=== PATIENT | male | born 1930 | race Caucasian/White ===

== ENCOUNTER 2016-12-07 21:11 | Inpatient (IN) | payer OTHER, MEDICARE ==
[~2016-12-07] VITALS: Ht 182.9 cm; Wt 92.9 kg
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
--- NOTE | ~2016-12-07 | EKG ---
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
[~2016-12-07 21:11] MED LIST: ALDACTONE25 MG PO; ASPIRIN EC325 M1 PO; BENAZEPRIL HCL10 MG PO; COREG PO; COREG25 MG PO; COUMADIN 2.5MG2.5 M1 PO; COUMADIN 5 MG TA5 M1 PO; FLAGYL500 MG PO; HYDROCODONE-AP1 EAC6 PO; IMDUR 60 MG TAB60 M1 PO; IMDUR120 MG PO; K-DUR10 ME1 PO; LANOXIN 0.120.125 M1 PO; LASIX 40 MG TAB40 M1 PO; LIPITOR10 MG PO; LOPID600 MG PO; LOTENSIN PO; LOTENSIN20 MG PO; OXYGEN MISCELL; PACERONE 200 M200 M1 PO; PROAIR HFA8.5 GM INH
[2016-12-07 21:12] VITALS: BP 174/73
[2016-12-07 21:45] LABS: ABG SAMPLE TYPE ARTERIAL; BE(vivo) 1.7 mmol/L (-2 to +3); HCO3 25.8 mmol/L (22.0-26.0); LACTATE 2.04 mmol/L (0.5-2.0); O2(CT) 18.3 mL/dL (15.0-23.0); PCO2 38.8 mmHg (35.0-45.0); PO2 48.1 mmHg (80.0-100.0); sO2 85.5 % (92.0-98.0)
[2016-12-07 21:46] LABS: STICK SITE R.BRACHIAL
[2016-12-07 21:53] LABS: ANION GAP 7 mmol/L (7-16); BUN 22 mg/dL (7-18); CHLORIDE 107 mmol/L (98-107); CO2 29 mmol/L (21-32); CREATININE 1.1 mg/dL (0.6-1.3); GLUCOSE 118 mg/dL (70-99); POTASSIUM 3.7 mmol/L (3.5-5.1); SODIUM 143 mmol/L (136-145)
[2016-12-07 21:54] LABS: HEMATOCRIT 46.6 % (42.0-52.0); HEMOGLOBIN 15.3 gm/dL (14.0-18.0); MANUAL DIFF YES; MCHC 32.8 % (28.0-37.0); MCV 100.8 fL (80.0-100.0); PLATELET COUNT 155 thou/uL (150-400); RBC 4.63 mil/uL (4.50-6.00); RDW 14.4 % (10.5-14.5); WBC 11.7 thou/uL (4.0-11.0)
[2016-12-07 21:59] LABS: INR 2.8; PROTIME 28.6 Seconds (9.3-11.4)
[2016-12-07] MEDS ORDERED: TRAMADOL 50 MG50 MG PO (22:04)
[2016-12-07 22:15] LABS: ALBUMIN 3.2 g/dL (3.4-5.0); ALKALINE PHOSPHATASE 88 U/L (46-116); MAGNESIUM 1.9 mg/dL (1.8-2.4); SGOT 15 U/L (15-37); SGPT 15 U/L (30-65); TOTAL BILIRUBIN 0.5 mg/dL (<0.1-1.0); TOTAL PROTEIN 7.2 g/dL (6.4-8.2); TROPONIN-I < 0.04 ng/mL (<0.04-0.07)
[2016-12-07 22:22] LABS: ABSOLUTE NEUTROPHILS 10.1 thou/uL (1.4-8.2); TOTAL CELL COUNT 100
[2016-12-07 22:25] LABS: URINE BILIRUBIN NEGATIVE (Negative); URINE BLOOD NEGATIVE (Negative); URINE COLOR YELLOW; URINE GLUCOSE-RANDOM* NEGATIVE (Negative); URINE KETONES NEGATIVE (Negative); URINE LEUKOCYTES-REFLEX NEGATIVE (Negative); URINE PROTEIN (DIPSTICK) 1+ (Negative); URINE SPECIFIC GRAVITY 1.015 (1.003-1.035); URINE UROBILINOGEN 0.2 E.U./dl (0.2-1.0)
[2016-12-07 22:32] LABS: CASTS None Seen /LPF (None Seen); CRYSTALS None Seen /LPF (None Seen); SQUAMOUS None Seen /LPF (0-3); URINE RBC None Seen /HPF (0-2); URINE WBC-REFLEX None Seen /HPF (0-5)
[2016-12-08 00:24] VITALS: BP 129/53
[2016-12-08 07:45] VITALS: BP 127/68
[2016-12-08 11:42] VITALS: BP 119/53
[2016-12-08 15:16] VITALS: BP 99/47
[2016-12-08 15:49] VITALS: BP 104/49
[2016-12-08 20:35] VITALS: BP 105/53
[2016-12-09 00:37] VITALS: BP 114/57
[2016-12-09 04:20] VITALS: BP 120/69
[2016-12-09 05:28] LABS: HEMATOCRIT 41.4 % (42.0-52.0); HEMOGLOBIN 13.5 gm/dL (14.0-18.0); MCH 32.6 pg (26.0-34.0); MCHC 32.6 % (28.0-37.0); MCV 100.1 fL (80.0-100.0); PLATELET COUNT 131 thou/uL (150-400); RBC 4.14 mil/uL (4.50-6.00); RDW 14.6 % (10.5-14.5); WBC 12.2 thou/uL (4.0-11.0)
[2016-12-09 05:34] LABS: MANUAL DIFF YES
[2016-12-09 05:36] LABS: INR 2.8; PROTIME 29.2 Seconds (9.3-11.4)
[2016-12-09 05:37] LABS: CALCIUM 8.9 mg/dL (8.5-10.1); CREATININE 1.3 mg/dL (0.6-1.3); POTASSIUM 4.5 mmol/L (3.5-5.1)
[2016-12-09 06:33] LABS: ABSOLUTE NEUTROPHILS 11.2 thou/uL (1.4-8.2); ANISOCYTOSIS SLIGHT; TOTAL CELL COUNT 100
[2016-12-09 06:35] LABS: MACROCYTES 2+
[2016-12-09 08:32] VITALS: BP 125/65
[2016-12-09] MEDS ORDERED: PREDNISONE 20 M20 MG PO (09:11)
[2016-12-09] MEDS ORDERED: LEVAQUIN 500 M500 M4 PO (09:12)
[2016-12-09 09:58] VITALS: BP 125/65
[2016-12-09 10:55] VITALS: BP 125/65
[2017-01-31] MEDS ORDERED: VENTOLIN HFA 1818 GM INH (13:45)
[2017-01-31] MEDS ORDERED: APAP500 PO (13:50)
== END 2016-12-09 10:54 | disposition home or self-care (01) | DRG 177 ==
LOC: ER 21:11 → 3N 22:19 → EROBS 22:19 → 3N 12-08 00:24
PROVIDERS: Emergency Medicine; Family Medicine; Nurse Practitioner Acute Care
DX: J69.0 Pneumonitis due to inhalation of food and vomit (principal); J96.21 Acute and chronic respiratory failure with hypoxia; J44.1 Chronic obstructive pulmonary disease with (acute) exacerbation; J44.0 Chronic obstructive pulmonary disease with (acute) lower respiratory infection; Z96.89 Presence of other specified functional implants; E78.5 Hyperlipidemia, unspecified; I10 Essential (primary) hypertension; I25.10 Atherosclerotic heart disease of native coronary artery without angina pectoris; F17.210 Nicotine dependence, cigarettes, uncomplicated; I73.9 Peripheral vascular disease, unspecified; Z98.890 Other specified postprocedural states; I48.2 Chronic atrial fibrillation; Z66 Do not resuscitate; Z79.82 Long term (current) use of aspirin; Z79.899 Other long term (current) drug therapy; Z28.21 Immunization not carried out because of patient refusal; Z89.512 Acquired absence of left leg below knee; Z89.511 Acquired absence of right leg below knee; Z98.42 Cataract extraction status, left eye; Z98.41 Cataract extraction status, right eye; Z95.820 Peripheral vascular angioplasty status with implants and grafts; Z88.0 Allergy status to penicillin; Z79.01 Long term (current) use of anticoagulants
CPT/HCPCS: 10096

== ENCOUNTER 2016-12-13 02:57 | Inpatient (IN) | payer OTHER, MEDICARE ==
[2016-12-13] VITALS (48 sets, daily range): BP systolic 94–164; BP diastolic 47–87
[~2016-12-13] VITALS: Ht 182.9 cm; Wt 104.3 kg
--- NOTE | ~2016-12-13 | HC ---
[facility] [place] [address] CONSULTATION Name: MALOU DUNNMagali Damon Room #: 246-P [facility] IN ..#: [id number] Admission: 12/13/16 Attend Phys: Louis Ortiz DO Discharge: Date of : 32 Report #: [id number] THIS REPORT FOR: //name// CC: Kirby Shepard PRIMARY CARE PHYSICIAN: Raza oY M.D. REFERRING PHYSICIAN: Dr. Hunt. REASON FOR REFERRAL: Acute respiratory failure. HISTORY OF PRESENT ILLNESS: The patient is an 86-year-old white male who was brought to the Emergency Room with altered mental status and respiratory distress. In the ER, the patient was found to be in severe distress where he had to be intubated. A pulmonary consultation was requested. The patient has multiple hospitalizations over the past year starting in December. His last hospitalization was in November of 2016 for acute exacerbation of COPD. The patient continues to smoke. He was then subsequently dismissed to home. The patient lives with a roommate. Around 1:30 this morning, the patient's roommate heard a noise. She believes the patient may have fallen out of the bed. The patient was found on the floor unconsciousness. He was brought to the Emergency Room. According to the patient's friend, the patient uses BiPAP. He continues to smoke. In route to the hospital, Narcan was given. The patient became very agitated, awake. Note that patient is on hydrocodone for chronic back pain. He has known COPD, severity undefined. He has chronic hypoxic respiratory failure requiring chronic O2. Again, he continues to smoke. Currently, he is intubated. Hemodynamically stable. Gastric change is adequate. PAST MEDICAL HISTORY: Remarkable for coronary artery disease, status post biventricular pacemaker and defibrillator implantation, peripheral artery disease undergoing right fem-pop bypass, left below the knee amputation for severe peripheral vascular disease, COPD, chronic hypoxic respiratory failure on O2, atrial fibrillation, hyperlipidemia, hypertension, tobacco abuse. [address] [address] CONSULTATION Name: CARLOS DUNN Room #: 246-P [facility] IN M.R.#: [id number] Admission: 12/13/16 Attend Phys: Louis Ortiz DO Discharge: Date of : 32 Report #: [id number] ALLERGIES: PENICILLIN, reactions not specified. MEDICATIONS: On admission include aspirin, hydrocodone/acetaminophen 5/325 mg 1-2 tablets every 4 hours p.r.n. pain, Lasix, Lipitor, K-Dur, Ultram, Imdur, Lotensin, Coreg, Coumadin 2.5 mg once a day, Cogentin 2.5 mg as directed, ProAir, Coumadin 5 mg as directed. FAMILY HISTORY: Unremarkable. SOCIAL HISTORY: He continues to smoke about a pack a day for all his life. No alcohol use. He lives with a friend. MEDICAL DIRECTIVE: According to the RN, the patient had a medical directive stating that he is a DNR in the past. This will need to be readdressed on this admission. REVIEW OF SYSTEMS: Deferred as the patient is intubated. PHYSICAL EXAMINATION: GENERAL: He is sedated on Diprivan. VITAL SIGNS: Temperature is 97 degrees Fahrenheit, pulse is 60, respiratory rate is 24, blood pressure is 115/60 mmHg, saturation 97%. HEENT: Normocephalic, atraumatic. NECK: Supple without any lymphadenopathy or thyromegaly. CHEST: Breath sounds are moderate with mild expiratory wheezes, mild coarse breath sounds bilaterally. Few scattered crackles in the bases. CARDIOVASCULAR: Heart sounds are distant, that is irregularly irregular. No murmurs or gallop. Pulses are 2+/4+ bilaterally. ABDOMEN: Soft, nontender, no organomegaly or masses felt. EXTREMITIES: There is no edema, cyanosis or clubbing. Extremities remarkable for left BKA, otherwise no cyanosis or clubbing. DIAGNOSTIC DATA: Portable chest x-ray revealed a mild bilateral interstitial infiltrates, chronic right pleural disease, mild, cardiomegaly; ET tube is approximately 2.5 cm above the perico. CT head, CT spine, CT of the fascial mandible grossly unremarkable. CT of head does reveal extensive atrophy along with chronic microvascular disease. CT of cervical spine revealed extensive cervical spine osteoarthritis. CT of the facial bones and mandible reveal a subtle nasal fracture with minimal displacement. Arterial blood gas on admission revealed pH 7.44, pCO2 of 38, pO2 48 on 6 liters of O2. Following intubation, arterial blood gas revealed pH 7.28, pCO2 of 61, pO2 of 296 on FiO2 100%. Troponin is mildly elevated. WBC 11,700 with 10% bandemia. Platelets are normal. Liver function test is mildly abnormal. Albumin of 3.2. IMPRESSION: [facility] [address] [place] [address] CONSULTATION Name: CARLOS DUNN Room #: 246-P [facility] IN M.R.#: [id number] Admission: 12/13/16 Attend Phys: Louis Ortiz DO Discharge: Date of : 32 Report #: [id number] 1. Acute encephalopathy, unresponsive state, likely related to chronic narcotics. Note that patient did respond to Narcan. 2. Acute hypoxic respiratory failure. Initial arterial blood gas likely suggests venous. Followup subsequent blood gas shows what appears to be chronic hypercapnia. The patient likely has acute on chronic hypercapnic hypoxic respiratory failure due to exacerbation of COPD, with bandemia and radiographic findings, recurrent pneumonia including aspiration, gram negative is considered. 3. Bilateral infiltrates, mild with chronic pleural disease. With current presentation, cannot rule out recurrent infection as mentioned above. 4. Acute kidney injury, now with a creatinine of 1.4. 5. Coronary artery disease with apparent severe ischemic cardiomyopathy, his last cardiac evaluation showed an ejection fraction of approximately 20%. 6. Peripheral vascular disease, status post left BKA. Status post right fem-pop bypass surgery in 1999. 7. Chronic atrial fibrillation on chronic anticoagulation. The patient is on Coumadin. 8. Hypertension, hyperlipidemia. 9. Tobacco abuse. The patient continued to smoke to this day. 10. Apparent back pain and had been on narcotics. This will need to be addressed given his presentation. RECOMMENDATION: We will continue mechanical ventilation, corticosteroids, bronchodilators along with broad spectrum antibiotics. Wean O2 for saturation 90%. DVT and GI prophylaxis will be addressed, although patient is already on anticoagulation. Smoke cessation will be recommended though this appears to be a big problem in this patient with chronic hypoxic respiratory failure along with presumed severe COPD. The patient is felt to have asthma according to history. Thank you for this consultation. <ELECTRONICALLY SIGNED> By: Jayden Shepard MD 12/13/16 1647 1133 1307 Jayden Shepard MD /dimas
--- NOTE | ~2016-12-13 | EKG ---
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1930 Requested By: Ehsan Mahan Order Number: [id number] MD: Juan Jose Mcghee Measurements Intervals [place] Rate: 63 P: [place]: QRS: -71 QRSD: 198 T: 113 QT: 467 QTc: 479 Interpretive Statements V-paced complexes No further analysis attempted due to paced rhythm Compared to ECG 12/07/2016 21:15:04 No significant changes Electronically Signed On 12-13-2016 7:45:01 CARBON PASTE MIXER OPERATOR by Juan Jose Mcghee [email or web address] <ELECTRONICALLY SIGNED> By: Juan Jose Mcghee MD, [facility] 12/13/16 0745 0340 Juan Jose Mcghee MD, FAC /EPI
--- NOTE | ~2016-12-13 | 2DMMODE ---
[facility] [place] [address] 2 D/M-MODE ECHOCARDIOGRAM Name: CARLOS DUNN Room #: 435-P [facility] IN [facility]#: [id number] Admission: 12/13/16 Attend Phys: Louis Ortiz, Discharge: Date of : 32 Date of Service: 12/16/16 1206 Report #: [id number] THIS REPORT FOR: //name// Transthoracic Echocardiography Ordering physician: Beatriz Pierre Referring physician: MD Sanaz Seals, Beatriz Kramer Terminal Computer Operator: Indications/History: Short of breath. Cardiomyopathy. Hx: CAD, Pacermaker/defibrillator, COPD, Afib, HTN, HLP BP: 156 / HR: 72bpm Height: 72in Weight: 229.5lb 81 Study data: M-mode, complete 2D, complete spectral Doppler, and color Doppler. Location: Bedside. Routine. Image quality was adequate. 2D measurements Normal Normal LVID ED 60.7mm 36-57 IVS ED 14.1mm 6-11 LVID ES 51.9mm 23-40 LVPW ED 11.9mm 6-11 LA volume 52ml/m2 16-28 AoRoot diam 36mm 21-37 index ED LVOT diameter 23mm 18-23 Findings: Left ventricle: The cavity size was dilated. Wall thickness was increased in a pattern of mild LVH. Systolic function was moderately reduced. The estimated ejection fraction was in the range of 35%. Regional wall motion abnormalities: Severe hypokinesis of the inferolateral myocardium. Right ventricle: The cavity size was moderately dilated. Systolic function was moderately reduced. Right atrium: The atrium was moderately to severely dilated. Pacer wire or catheter noted in right atrium. Left atrium: The atrium was severely dilated. Volume index: 52ml/m2 (S). [facility] [address] [place] [address] 2 D/M-MODE ECHOCARDIOGRAM Name: CARLOS DUNN Room #: 435-P [facility] IN [place]#: [id number] Admission: 12/13/16 Attend Phys: Louis Ortiz, Discharge: Date of : 32 Date of Service: 12/16/16 1206 Report #: [id number] Aortic valve: Mildly sclerotic leaflets. Doppler: There was no stenosis. No regurgitation. Peak velocity: 128.1cm/s (S). Mitral valve: Mildly calcified annulus. Doppler: There was no evidence for stenosis. Mild regurgitation. Peak E-wave velocity: 107.2cm/s. Peak gradient: 4.6mm Hg (D). Tricuspid valve: Structurally normal valve. Doppler: There was no evidence for stenosis. Mild-moderate regurgitation. Regurgitant peak velocity: 333.8cm/s. Peak RV-RA gradient: 45mm Hg (S). Pulmonic valve: Structurally normal valve. Doppler: There was no evidence for stenosis. Trivial regurgitation. Pericardium: There was no pericardial effusion. Aorta: Aortic root: The aortic root was normal in size. Pulmonary artery: Systolic pressure was estimated to be 55mm Hg. Diastolic function: The study is not technically sufficient to allow evaluation of LV diastolic function. Systemic veins: Inferior vena cava: The vessel was dilated; the respirophasic diameter changes were blunted (< 50%). Line: Pacemaker leads noted. Conclusions 1. Left ventricle: Systolic function was moderately reduced. The estimated ejection fraction was in the range of 35%. Severe hypokinesis of the inferolateral myocardium. 2. Right atrium: The atrium was moderately to severely dilated. 3. Left atrium: The atrium was severely dilated. 4. Aortic valve: Mildly sclerotic leaflets. There was no stenosis. No regurgitation. 5. Mitral valve: Mildly calcified annulus. Mild regurgitation. 6. Pericardium, extracardiac: There was no pericardial effusion. 7. Pulmonary arteries: Systolic pressure was estimated to be [facility] [address] [place] [address] 2 D/M-MODE ECHOCARDIOGRAM Name: CARLOS DUNN Room #: 435-P [facility] IN [facility]#: [id number] Admission: 12/13/16 Attend Phys: Louis Ortiz, Discharge: Date of : 32 Date of Service: 12/16/16 1206 Report #: [id number] 55mm Hg. 8. Line: Pacemaker leads noted. <ELECTRONICALLY SIGNED> By: Juan Jose Mcghee MD, [facility] 12/16/16 1426 1206 25 Juan Jose Mcghee MD, [facility] /roxy
[~2016-12-13 02:57] MED LIST changes: +LEVAQUIN 500 M500 M4 PO; +PREDNISONE 20 M20 MG PO; +TRAMADOL 50 MG50 MG PO
[2016-12-13 03:17] LABS: HEMATOCRIT 47.5 % (42.0-52.0); HEMOGLOBIN 15.4 gm/dL (14.0-18.0); MCH 32.8 pg (26.0-34.0); MCHC 32.5 % (28.0-37.0); PLATELET COUNT 168 thou/uL (150-400); RDW 14.2 % (10.5-14.5); WBC 14.2 thou/uL (4.0-11.0)
[2016-12-13 03:25] LABS: URINE BILIRUBIN NEGATIVE (Negative); URINE BLOOD NEGATIVE (Negative); URINE COLOR YELLOW; URINE GLUCOSE-RANDOM* NEGATIVE (Negative); URINE KETONES NEGATIVE (Negative); URINE LEUKOCYTES-REFLEX NEGATIVE (Negative); URINE PROTEIN (DIPSTICK) TRACE (Negative); URINE UROBILINOGEN 0.2 E.U./dl (0.2-1.0)
[2016-12-13 03:29] LABS: APTT 27.5 Seconds (24.5-32.8); CALCIUM 8.8 mg/dL (8.5-10.1); CREATININE 1.4 mg/dL (0.6-1.3); INR 2.1; MANUAL DIFF YES; POTASSIUM 5.1 mmol/L (3.5-5.1); PROTIME 21.4 Seconds (9.3-11.4)
[2016-12-13 03:33] LABS: AMP/METHAMP Negative (Negative); BARBITURATES Negative (Negative); BENZODIAZEPINES Negative (Negative); COCAINE Negative (Negative); METHADONE Negative (Negative); OPIATES POSITIVE (Negative); PCP Negative (Negative); THC Negative (Negative)
[2016-12-13 03:34] LABS: ABG SAMPLE TYPE ARTERIAL; BE(vivo) -3.6 mmol/L (-2 to +3); HCO3 23.7 mmol/L (22.0-26.0); LACTATE 4.44 mmol/L (0.5-2.0); O2(CT) 22.2 mL/dL (15.0-23.0); O2Hb 96.4 % (92.0-98.0); PCO2 51.2 mmHg (35.0-45.0); pH 7.283 (7.360-7.450); sO2 99.6 % (92.0-98.0); tCO2 25.3 mmol/L (24.0-30.0)
[2016-12-13 03:44] LABS: ALBUMIN 3.4 g/dL (3.4-5.0); CK-MB MASS 1.6 ng/mL (<0.5-3.6); MAGNESIUM 2.6 mg/dL (1.8-2.4); TOTAL BILIRUBIN 0.9 mg/dL (<0.1-1.0); TOTAL PROTEIN 7.6 g/dL (6.4-8.2); TROPONIN-I 0.07 ng/mL (<0.04-0.07)
[2016-12-13 04:01] LABS: ABSOLUTE NEUTROPHILS 12.1 thou/uL (1.4-8.2); TOTAL CELL COUNT 100
[2016-12-13 04:02] LABS: LARGE PLATELETS RARE
[2016-12-13 05:52] LABS: ABG SAMPLE TYPE ARTERIAL; BE(vivo) 1.8 mmol/L (-2 to +3); HCO3 28.6 mmol/L (22.0-26.0); LACTATE 2.02 mmol/L (0.5-2.0); O2(CT) 19.9 mL/dL (15.0-23.0); O2Hb 96.9 % (92.0-98.0); PO2 333.3 mmHg (80.0-100.0); STICK SITE R.RADIAL; TIDAL VOLUME 600 ml; pH 7.342 (7.360-7.450); sO2 99.7 % (92.0-98.0); tCO2 30.3 mmol/L (24.0-30.0)
[2016-12-14] VITALS (30 sets, daily range): BP systolic 99–161; BP diastolic 44–101
[2016-12-14 05:47] LABS: ABG SAMPLE TYPE ARTERIAL; BE(vivo) 1.9 mmol/L (-2 to +3); FIO2 50 %; HCO3 27.9 mmol/L (22.0-26.0); LACTATE 1.51 mmol/L (0.5-2.0); O2(CT) 18.9 mL/dL (15.0-23.0); O2Hb 96.8 % (92.0-98.0); PCO2 49.1 mmHg (35.0-45.0); PO2 110.8 mmHg (80.0-100.0); STICK SITE R.RADIAL; TIDAL VOLUME 600 ml; pH 7.373 (7.360-7.450); sO2 97.9 % (92.0-98.0); tCO2 29.4 mmol/L (24.0-30.0)
[2016-12-14 07:17] LABS: HEMATOCRIT 39.1 % (42.0-52.0); MCH 32.9 pg (26.0-34.0); MCHC 33.3 % (28.0-37.0); PLATELET COUNT 124 thou/uL (150-400); RBC 3.95 mil/uL (4.50-6.00); RDW 14.1 % (10.5-14.5); WBC 12.1 thou/uL (4.0-11.0)
[2016-12-14 07:22] LABS: MANUAL DIFF YES
[2016-12-14 07:53] LABS: ABSOLUTE NEUTROPHILS 11.3 thou/uL (1.4-8.2); TOTAL CELL COUNT 100
[2016-12-14 07:54] LABS: ANISOCYTOSIS 1+; HYPOCHROMASIA SLIGHT
[2016-12-14 08:06] LABS: CALCIUM 8.1 mg/dL (8.5-10.1); CREATININE 1.1 mg/dL (0.6-1.3)
[2016-12-15] VITALS (17 sets, daily range): BP systolic 108–148; BP diastolic 55–88
[2016-12-15 07:00] LABS: HEMATOCRIT 41.7 % (42.0-52.0); HEMOGLOBIN 13.5 gm/dL (14.0-18.0); MCH 32.9 pg (26.0-34.0); MCHC 32.3 % (28.0-37.0); MCV 101.7 fL (80.0-100.0); RBC 4.09 mil/uL (4.50-6.00); RDW 14.1 % (10.5-14.5); WBC 10.7 thou/uL (4.0-11.0)
[2016-12-15 07:20] LABS: ALBUMIN 2.9 g/dL (3.4-5.0); CALCIUM 8.5 mg/dL (8.5-10.1); CREATININE 0.9 mg/dL (0.6-1.3); PHOSPHORUS 2.8 mg/dL (2.5-4.9)
[2016-12-16] VITALS (10 sets, daily range): BP systolic 123–157; BP diastolic 54–94
[2016-12-16 04:20] LABS: HEMOGLOBIN 13.3 gm/dL (14.0-18.0); MCH 33.7 pg (26.0-34.0); RBC 3.94 mil/uL (4.50-6.00); RDW 13.8 % (10.5-14.5); WBC 9.4 thou/uL (4.0-11.0)
[2016-12-16 04:35] LABS: ALBUMIN 2.8 g/dL (3.4-5.0); CALCIUM 8.3 mg/dL (8.5-10.1); CREATININE 0.9 mg/dL (0.6-1.3); PHOSPHORUS 2.8 mg/dL (2.5-4.9); POTASSIUM 4.2 mmol/L (3.5-5.1)
[2016-12-17 04:23] VITALS: BP 171/79
[2016-12-17 07:40] VITALS: BP 146/59
[2016-12-17] MEDS ORDERED: LEVAQUIN 750 M750 MG PO (10:54)
[2016-12-17 11:35] VITALS: BP 155/75
[2016-12-17 11:41] VITALS: BP 155/75
[2016-12-17 12:13] VITALS: BP 155/75
[2016-12-17 12:24] VITALS: BP 155/75
[2017-01-31] MEDS ORDERED: VENTOLIN HFA 1818 GM INH (13:45)
[2017-01-31] MEDS ORDERED: APAP500 PO (13:50)
== END 2016-12-17 13:05 | disposition home health service (06) | DRG 208 ==
LOC: ER 02:57 → EROBS 05:59 → ICU 05:59 → 4S 12-16 06:25
PROVIDERS: Emergency Medicine; Family Medicine; Hospitalist; Internal Medicine Pulmonary Disease
PROC: 0BH17EZ Insertion of Endotracheal Airway into Trachea, Via Natural or Artificial Opening (ICD-10-PCS; principal; 2016-12-13)
PROC: 5A1945Z Respiratory Ventilation, 24-96 Consecutive Hours (ICD-10-PCS; principal; 2016-12-13)
DX: J96.21 Acute and chronic respiratory failure with hypoxia (principal); J18.9 Pneumonia, unspecified organism; G93.40 Encephalopathy, unspecified; J44.0 Chronic obstructive pulmonary disease with (acute) lower respiratory infection; J44.1 Chronic obstructive pulmonary disease with (acute) exacerbation; N17.9 Acute kidney failure, unspecified; J96.22 Acute and chronic respiratory failure with hypercapnia; I25.5 Ischemic cardiomyopathy; I48.2 Chronic atrial fibrillation; M54.9 Dorsalgia, unspecified; I25.10 Atherosclerotic heart disease of native coronary artery without angina pectoris; I73.9 Peripheral vascular disease, unspecified; I49.5 Sick sinus syndrome; N18.9 Chronic kidney disease, unspecified; I12.9 Hypertensive chronic kidney disease with stage 1 through stage 4 chronic kidney disease, or unspecified chronic kidney disease; S02.2XXA Fracture of nasal bones, initial encounter for closed fracture; W06.XXXA Fall from bed, initial encounter; E78.5 Hyperlipidemia, unspecified; J45.909 Unspecified asthma, uncomplicated; D72.829 Elevated white blood cell count, unspecified; F17.210 Nicotine dependence, cigarettes, uncomplicated; Z95.820 Peripheral vascular angioplasty status with implants and grafts; Z99.81 Dependence on supplemental oxygen; Z89.512 Acquired absence of left leg below knee; Z95.810 Presence of automatic (implantable) cardiac defibrillator; Z98.42 Cataract extraction status, left eye; Z98.41 Cataract extraction status, right eye; Z90.49 Acquired absence of other specified parts of digestive tract; Z98.890 Other specified postprocedural states; Z88.0 Allergy status to penicillin; Y93.89 Activity, other specified; Y92.89 Other specified places as the place of occurrence of the external cause
CPT/HCPCS: 10078

== ENCOUNTER → 2017-01-31 | Outpatient (CLI) | payer OTHER, MEDICARE ==
[~2017-01-31] VITALS: Ht 182.9 cm; Wt 93.0 kg
[~2017-01-31] MED LIST changes: +APAP500 PO; +LEVAQUIN 750 M750 MG PO; +VENTOLIN HFA 1818 GM INH
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
[2017-01-31 13:24] VITALS: BP 111/52
== END | disposition home or self-care (01) ==
LOC: PAIN 06:39
DX: M54.16 Radiculopathy, lumbar region (principal); I10 Essential (primary) hypertension; I73.9 Peripheral vascular disease, unspecified; M19.90 Unspecified osteoarthritis, unspecified site; I51.9 Heart disease, unspecified; J44.9 Chronic obstructive pulmonary disease, unspecified; Z95.0 Presence of cardiac pacemaker; Z95.5 Presence of coronary angioplasty implant and graft; Z98.890 Other specified postprocedural states

== ENCOUNTER → 2017-02-26 | Outpatient (CLI) | payer OTHER, MEDICARE ==
[~2017-02-26] VITALS: Ht 182.9 cm; Wt 95.7 kg
--- NOTE | ~2017-02-26 | HPC ---
[facility] [place] [address] PAIN MANAGEMENT CONSULTATION Name: CARLOS DUNN Room #: REG FABIOLA AlanaTysonKarthikeyan#: [id number] Admission: 02/26/17 Attend Phys: Wil Garcia MD Discharge: Date of : 34 Report #: [id number] THIS REPORT FOR: //name// CC: Wil Yo MD DATE OF SERVICE: 02/26/2017 FOLLOWUP COMPLAINT: "I am still having pain down in my low back area and sometimes in the leg if I walk more than about 20 feet." FOLLOWUP HISTORY: The patient is an 86-year-old gentleman who has been seen in the pain clinic because of pain in his low back. He has had some pain and discomfort down into his left leg as well. 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 He also has problems with claudication. This seems to be somewhat of a vascular nature. He has some stents in his legs. He underwent an epidural steroid injection at the last visit. He continues to have pain and discomfort in the low back area. He feels that the pain may have changed somewhat in his leg, but not appreciably. He notes that there is some pain in the lower portion of his back, in the area of the buttocks, pushing in the area with one's finger can reproduce some pain and discomfort. Low back pain can be reproduced with pressure in the left low back area. PHYSICAL EXAMINATION: The patient states that he is not having significant pain or discomfort with sitting. Pain increases with walking and standing. Blood pressure 129/62, pulse 65, respiratory rate 14, room air saturation 95%. The patient has pain in the lower portion of his back, which can be reproduced with pressure in the area of the posterior superior iliac spine area and gluteus brenda. IMPRESSION: 1. Chronic low back pain in the left gluteus brenda/posterior superior iliac spine area. This is reproduced with pressure and palpation. 2. Status post left leg amputation. 3. Peripheral vascular disease with stents in place in the lower extremities with possible vascular claudication. 4. Chronic obstructive pulmonary disease; with oxygen on and in place, O2 saturations 4 L/5 L, approximately 90-95% saturation. RECOMMENDATIONS: We discussed treatment options with the patient. Risks and benefits of the procedure were discussed. Possible complications were reviewed. We were able to reproduce the patient's pain and discomfort in the left posterior superior iliac spine near the gluteus brenda muscle; palpation in this area does reproduce pain and he is complaining that this pain was similar to that [place] [address] PAIN MANAGEMENT CONSULTATION Name: CARLOS DUNN Room #: REG [facility] Naif#: [id number] Admission: 02/26/17 Attend Phys: Wil Garcia MD Discharge: Date of : 34 Report #: [id number] We will proceed with a trigger point injection to the affected area. Risks and benefits of the procedure were again reviewed. Possible complications were discussed. The patient elects to proceed. PROCEDURE NOTE: The patient was placed in the sitting position. His back was sterilely prepped with a chlorhexidine solution. It was allowed to dry. A 25-gauge needle was then advanced into the area of the posterior superior iliac spine area near the gluteus brenda. The patient stated this reproduces pain. A total of 10 mL of 0.5% bupivacaine was injected with 80 mg Depo-Medrol. The patient noted some reproduction of his pain with the injection. His pain decreased to 0 at the time of discharge. He will follow up in the future as needed. We would like to thank you for letting us participate in his care. We hope he continues to improve. By: [id number] Wil Garcia MD /dimas
[2017-02-26 12:43] VITALS: BP 129/62
== END ==
LOC: PAIN 02-19 14:19
DX: M79.1 Myalgia (principal); I73.9 Peripheral vascular disease, unspecified; J44.9 Chronic obstructive pulmonary disease, unspecified; Z89.512 Acquired absence of left leg below knee; I10 Essential (primary) hypertension; Z87.891 Personal history of nicotine dependence

== ENCOUNTER → 2017-04-28 | Outpatient (CLI) | payer OTHER, MEDICARE | LOC: RAD 09:04 | DX: J44.9 Chronic obstructive pulmonary disease, unspecified (principal) ==

== ENCOUNTER 2017-05-29 20:04 | Inpatient (IN) | payer OTHER, MEDICARE ==
[~2017-05-29] VITALS: Ht 182.9 cm; Wt 108.9 kg
--- NOTE | ~2017-05-29 | EKG ---
[place] [address] [employer] [address] [address] ELECTROCARDIOGRAM REPORT Name: CARLOS DUNN Room #: 452-P ADM IN M.R.#: [id number] Admission: 05/29/17 Attend Phys: Piero Blanco MD Discharge: Date of : 34 Report #: [id number] THIS REPORT FOR: //name// [facility] ED Test Date: 2017-05-29 Test Time: 20:45:43 Pat Name: CARLOS DUNN Department: Room: 452 P Gender: M [employer] Operator: ARTHUR : 1930 Requested By: Sneha Pope Order Number: [id number] MD: Juan Jose Mcghee Measurements Intervals [place] Rate: 61 P: 107 GA: 99 QRS: -77 QRSD: 180 T: 116 QT: 434 QTc: 438 Interpretive Statements Ventricular-paced complexes No further analysis attempted due to paced rhythm Compared to ECG 05/22/2017 21:15:52 No significant changes Electronically Signed On 06-01-2017 13:04:59 CDT by Juan Jose Mcghee [email or web address] <ELECTRONICALLY SIGNED> By: Juan Jose Mcghee MD, [facility] 06/01/17 1304 44 Juan Jose Mcghee MD, [facility] /EPI
[~2017-05-29 20:04] MED LIST changes: +CARVEDILOL25 MG PO; +DEMADEX20 MG PO; +MUCINEX TA600 MG/TA2 PO; +PREDNISONE 10 M10 MG PO
[2017-05-29 20:06] VITALS: BP 151/73
[2017-05-29 21:04] LABS: ABG SAMPLE TYPE ARTERIAL; BE(vivo) 5.8 mmol/L (-2 to +3); LACTATE 2.33 mmol/L (0.5-2.0); O2(CT) 18.1 mL/dL (15.0-23.0); O2Hb 96.9 % (92.0-98.0); PCO2 47.6 mmHg (35.0-45.0); pH 7.432 (7.360-7.450); sO2 98.1 % (92.0-98.0); tCO2 32.5 mmol/L (24.0-30.0)
[2017-05-29 21:06] LABS: STICK SITE L.RADIAL
[2017-05-29 21:23] LABS: HEMOGLOBIN 12.6 gm/dL (14.0-18.0); MANUAL DIFF YES; MCV 99.9 fL (80.0-100.0); PLATELET COUNT 186 thou/uL (150-400); RBC 3.81 mil/uL (4.50-6.00); RDW 13.8 % (10.5-14.5); WBC 12.6 thou/uL (4.0-11.0)
[2017-05-29 21:32] LABS: CALCIUM 9.6 mg/dL (8.5-10.1); CREATININE 1.3 mg/dL (0.7-1.3); POTASSIUM 5.2 mmol/L (3.5-5.1)
[2017-05-29 21:41] LABS: TROPONIN-I 0.05 ng/mL (<0.04-0.07)
[2017-05-29 21:44] LABS: ABSOLUTE NEUTROPHILS 11.7 thou/uL (1.4-8.2); TOTAL CELL COUNT 100
[2017-05-29 21:50] LABS: ANISOCYTOSIS 1+
[2017-05-29 21:51] VITALS: BP 155/71
[2017-05-30 00:15] LABS: CHOLESTEROL 101 mg/dL (<200); HDL CHOLESTEROL 51 mg/dL (>40); LDL CHOLESTEROL 41 mg/dL (<100); TRIGLYCERIDE 45 mg/dL (<150); VLDL 9 mg/dL (<40)
[2017-05-30 04:28] VITALS: BP 140/76
[2017-05-30 06:09] LABS: HEMATOCRIT 36.5 % (42.0-52.0); MCH 32.6 pg (26.0-34.0); MCHC 32.9 g/dL (28.0-37.0); MCV 99.2 fL (80.0-100.0); RBC 3.68 mil/uL (4.50-6.00); RDW 13.9 % (10.5-14.5)
[2017-05-30 06:25] LABS: CREATININE 1.2 mg/dL (0.7-1.3); POTASSIUM 4.8 mmol/L (3.5-5.1)
[2017-05-30 07:22] VITALS: BP 146/73
[2017-05-30 11:15] VITALS: BP 150/77
[2017-05-30 15:42] VITALS: BP 137/53
[2017-05-30 19:27] VITALS: BP 141/73
[2017-05-31 03:14] VITALS: BP 170/77
[2017-05-31 04:06] LABS: GLYCOHEMOGLOBIN (HGB A1C) 5.7 % (4.8-5.6)
[2017-05-31 05:14] LABS: HEMATOCRIT 37.4 % (42.0-52.0); HEMOGLOBIN 12.3 gm/dL (14.0-18.0); MCH 32.5 pg (26.0-34.0); MCHC 32.8 g/dL (28.0-37.0); MCV 98.9 fL (80.0-100.0); RBC 3.79 mil/uL (4.50-6.00)
[2017-05-31 06:11] LABS: CALCIUM 9.2 mg/dL (8.5-10.1); CREATININE 1.2 mg/dL (0.7-1.3); POTASSIUM 4.5 mmol/L (3.5-5.1)
[2017-05-31 08:02] VITALS: BP 144/73
[2017-05-31 11:13] VITALS: BP 137/67
[2017-05-31 16:11] VITALS: BP 101/73
[2017-05-31 20:00] VITALS: BP 153/84
[2017-05-31 23:40] VITALS: BP 145/78
[2017-06-01 04:09] VITALS: BP 128/77
[2017-06-01 06:13] LABS: HEMATOCRIT 35.1 % (42.0-52.0); HEMOGLOBIN 11.8 gm/dL (14.0-18.0); MCH 33.1 pg (26.0-34.0); MCHC 33.7 g/dL (28.0-37.0); MCV 98.2 fL (80.0-100.0); RBC 3.57 mil/uL (4.50-6.00); RDW 13.6 % (10.5-14.5); WBC 10.2 thou/uL (4.0-11.0)
[2017-06-01 06:24] LABS: CALCIUM 8.7 mg/dL (8.5-10.1); CREATININE 1.1 mg/dL (0.7-1.3)
[2017-06-01 07:18] VITALS: BP 148/67
[2017-06-01 11:16] VITALS: BP 149/77
[2017-06-01 15:16] VITALS: BP 148/74
[2017-06-01 19:53] VITALS: BP 123/58
[2017-06-02 05:16] VITALS: BP 134/66
[2017-06-02 05:50] LABS: HEMATOCRIT 34.6 % (42.0-52.0); HEMOGLOBIN 11.7 gm/dL (14.0-18.0); MCH 33.2 pg (26.0-34.0); MCHC 33.7 g/dL (28.0-37.0); MCV 98.3 fL (80.0-100.0); RBC 3.51 mil/uL (4.50-6.00); RDW 13.9 % (10.5-14.5); WBC 9.7 thou/uL (4.0-11.0)
[2017-06-02 05:58] LABS: CALCIUM 8.2 mg/dL (8.5-10.1); POTASSIUM 3.7 mmol/L (3.5-5.1)
[2017-06-02 07:25] VITALS: BP 141/64
[2017-06-02 12:20] VITALS: BP 121/79
[2017-06-02 15:44] VITALS: BP 143/63
[2017-06-02 19:24] VITALS: BP 122/60
[2017-06-03 03:35] VITALS: BP 139/68
[2017-06-03 07:49] VITALS: BP 136/68
[2017-06-03 10:05] VITALS: BP 136/68
[2017-06-03] MEDS ORDERED: DUONEB 2.5-0.5 M3 ML INH (11:55)
[2017-06-03] MEDS ORDERED: ENOXAPARIN40 MG/0.1 SUBQ (11:55)
== END 2017-06-03 12:26 | DRG 177 ==
LOC: ER → EDBD 20:04 → EROBS 21:14 → 4W 21:14
PROVIDERS: Emergency Medicine; Hospitalist; Internal Medicine Pulmonary Disease; Nurse Practitioner Family; Psychiatry & Neurology Neurology
PROC: 5A09457 Assistance with Respiratory Ventilation, 24-96 Consecutive Hours, Continuous Positive Airway Pressure (ICD-10-PCS; principal; 2017-05-29)
DX: J69.0 Pneumonitis due to inhalation of food and vomit (principal); J96.21 Acute and chronic respiratory failure with hypoxia; J96.22 Acute and chronic respiratory failure with hypercapnia; I13.0 Hypertensive heart and chronic kidney disease with heart failure and stage 1 through stage 4 chronic kidney disease, or unspecified chronic kidney disease; J44.1 Chronic obstructive pulmonary disease with (acute) exacerbation; E87.2 Acidosis; Y95 Nosocomial condition; I50.9 Heart failure, unspecified; I73.9 Peripheral vascular disease, unspecified; I48.0 Paroxysmal atrial fibrillation; I48.2 Chronic atrial fibrillation; N18.9 Chronic kidney disease, unspecified; I25.10 Atherosclerotic heart disease of native coronary artery without angina pectoris; I25.5 Ischemic cardiomyopathy; R73.9 Hyperglycemia, unspecified; R25.3 Fasciculation; E78.5 Hyperlipidemia, unspecified; Z99.81 Dependence on supplemental oxygen; Z95.820 Peripheral vascular angioplasty status with implants and grafts; Z95.810 Presence of automatic (implantable) cardiac defibrillator; Z79.82 Long term (current) use of aspirin; Z79.899 Other long term (current) drug therapy; Z87.891 Personal history of nicotine dependence; Z89.512 Acquired absence of left leg below knee; Z88.0 Allergy status to penicillin
CPT/HCPCS: 10045

== ENCOUNTER 2017-06-03 13:36 | Inpatient (IN) | payer OTHER, MEDICARE ==
[~2017-06-03] VITALS: Ht 182.9 cm; Wt 103.1 kg
[2017-06-03 13:30] VITALS: BP 130/66
[~2017-06-03 13:36] MED LIST changes: +DUONEB 2.5-0.5 M3 ML INH; +ENOXAPARIN40 MG/0.1 SUBQ
[2017-06-04 04:06] VITALS: BP 143/73
[2017-06-04 04:38] LABS: HEMOGLOBIN 11.7 gm/dL (14.0-18.0); MCH 33.6 pg (26.0-34.0); MCHC 34.4 g/dL (28.0-37.0); MCV 97.6 fL (80.0-100.0); RBC 3.48 mil/uL (4.50-6.00); RDW 13.7 % (10.5-14.5); WBC 9.2 thou/uL (4.0-11.0)
[2017-06-04 05:02] LABS: CALCIUM 8.6 mg/dL (8.5-10.1); CREATININE 0.9 mg/dL (0.7-1.3); POTASSIUM 3.1 mmol/L (3.5-5.1)
[2017-06-04 16:00] VITALS: BP 124/74
[2017-06-05 03:55] LABS: ALBUMIN 3.1 g/dL (3.4-5.0); CALCIUM 8.5 mg/dL (8.5-10.1); CREATININE 0.8 mg/dL (0.7-1.3); MAGNESIUM 1.9 mg/dL (1.8-2.4); POTASSIUM 3.6 mmol/L (3.5-5.1); TOTAL BILIRUBIN 0.9 mg/dL (<0.1-1.0); TOTAL PROTEIN 6.5 g/dL (6.4-8.2)
[2017-06-05 04:42] VITALS: BP 131/71
[2017-06-05 08:47] VITALS: BP 126/60
[2017-06-05 16:00] VITALS: BP 127/66
[2017-06-06 09:07] LABS: CALCIUM 9.4 mg/dL (8.5-10.1); CREATININE 0.8 mg/dL (0.7-1.3); POTASSIUM 3.8 mmol/L (3.5-5.1)
[2017-06-06 16:00] VITALS: BP 146/55
[2017-06-07 04:31] VITALS: BP 141/79
[2017-06-07 16:00] VITALS: BP 135/64
[2017-06-08 05:51] VITALS: BP 126/58
[2017-06-08 16:00] VITALS: BP 150/78
[2017-06-08 20:00] VITALS: BP 119/56
[2017-06-09 05:43] VITALS: BP 126/71
[2017-06-09 16:00] VITALS: BP 125/68
[2017-06-10 04:00] VITALS: BP 129/63
[2017-06-10 05:46] LABS: HEMATOCRIT 33.8 % (42.0-52.0); HEMOGLOBIN 11.2 gm/dL (14.0-18.0); MCHC 33.1 g/dL (28.0-37.0); MCV 99.8 fL (80.0-100.0); PLATELET COUNT 129 thou/uL (150-400); RBC 3.39 mil/uL (4.50-6.00); WBC 7.2 thou/uL (4.0-11.0)
[2017-06-10 05:54] LABS: MANUAL DIFF YES
[2017-06-10 06:03] LABS: CALCIUM 8.8 mg/dL (8.5-10.1); CREATININE 0.8 mg/dL (0.7-1.3); MAGNESIUM 2.2 mg/dL (1.8-2.4)
[2017-06-10 07:25] LABS: ABSOLUTE NEUTROPHILS 5.4 thou/uL (1.4-8.2); METAMYELOCYTES 1 %; TOTAL CELL COUNT 100
[2017-06-10 16:00] VITALS: BP 121/62
[2017-06-11 05:10] LABS: CREATININE 0.9 mg/dL (0.7-1.3)
[2017-06-11 05:48] VITALS: BP 118/57
[2017-06-11 16:15] VITALS: BP 119/56
[2017-06-11 19:34] VITALS: BP 108/52
[2017-06-12 04:02] LABS: CALCIUM 8.9 mg/dL (8.5-10.1); POTASSIUM 3.5 mmol/L (3.5-5.1)
[2017-06-12 04:32] VITALS: BP 100/63
[2017-06-12 08:00] VITALS: BP 120/58
[2017-06-13 04:19] VITALS: BP 114/63
[2017-06-13] MEDS ORDERED: TORSEMIDE20 MG PO (07:06)
[2017-06-13] MEDS ORDERED: LISINOPRIL5 MG PO (07:06)
[2017-06-13] MEDS ORDERED: KLOR-CON 10 ER10 MEQ PO (07:06)
[2017-06-13] MEDS ORDERED: FLOMAX0.4 MG PO (13:51)
[2017-06-13] MEDS ORDERED: COLACE 100 MG100 MG PO (13:51)
[2017-06-13] MEDS ORDERED: MAG-AL PLUS SUS30 ML PO (13:51)
[2017-06-13 14:22] VITALS: BP 120/56
[2017-06-13 15:27] VITALS: BP 125/57
[2017-06-13 17:06] VITALS: BP 120/56
[2017-06-13 17:18] VITALS: BP 120/56
== END 2017-06-13 19:00 | disposition home health service (06) | DRG 177 ==
PROVIDERS: Internal Medicine Pulmonary Disease; Nurse Practitioner; Nurse Practitioner Adult Health; Physical Medicine & Rehabilitation
DX: J69.0 Pneumonitis due to inhalation of food and vomit (principal); I50.43 Acute on chronic combined systolic (congestive) and diastolic (congestive) heart failure; J96.21 Acute and chronic respiratory failure with hypoxia; J44.1 Chronic obstructive pulmonary disease with (acute) exacerbation; G83.84 Todd's paralysis (postepileptic); R53.81 Other malaise; E78.00 Pure hypercholesterolemia, unspecified; R53.1 Weakness; G47.00 Insomnia, unspecified; I25.10 Atherosclerotic heart disease of native coronary artery without angina pectoris; R13.10 Dysphagia, unspecified; I73.9 Peripheral vascular disease, unspecified; I25.5 Ischemic cardiomyopathy; E87.6 Hypokalemia; R33.8 Other retention of urine; R73.9 Hyperglycemia, unspecified; I11.0 Hypertensive heart disease with heart failure; I48.0 Paroxysmal atrial fibrillation; Z95.810 Presence of automatic (implantable) cardiac defibrillator; Z89.512 Acquired absence of left leg below knee; Z95.820 Peripheral vascular angioplasty status with implants and grafts; Z87.891 Personal history of nicotine dependence; Z99.81 Dependence on supplemental oxygen; Z79.82 Long term (current) use of aspirin; Z79.899 Other long term (current) drug therapy; Z88.0 Allergy status to penicillin
CPT/HCPCS: 10112

== ENCOUNTER → 2017-07-03 | Outpatient (CLI) | payer OTHER, MEDICARE ==
[~2017-07-03] MED LIST changes: +COLACE 100 MG100 MG PO; +FLOMAX0.4 MG PO; +KLOR-CON 10 ER10 MEQ PO; +LISINOPRIL5 MG PO; +MAG-AL PLUS SUS30 ML PO; +TORSEMIDE20 MG PO
== END ==
LOC: ULTRA 10:18
DX: M79.89 Other specified soft tissue disorders (principal)

== ENCOUNTER → 2017-07-08 | Outpatient (CLI) | payer OTHER, MEDICARE | LOC: RAD 11:00 | DX: J98.4 Other disorders of lung (principal) ==